=== PATIENT | male | born 1940 | race Two or more races ===

== ENCOUNTER 2021-08-23 05:52 | Inpatient (IN) | payer OTHER ==
[~2021-08-23] VITALS: Ht 177.8 cm; Wt 77.1 kg
[2021-08-23] MEDS ORDERED: COZAAR50 MG (06:05)
[2021-08-23] MEDS ORDERED: CARDURA XL8 MG (06:06)
[2021-08-23] MEDS ORDERED: METFORMIN HCL1000 M2 (06:06)
--- NOTE | 2021-08-23 06:07 | NUR ---
SE RECIBE PACIENTE ALERTA Y ORIENTADO X3 CON REFERIDO MEDICO DEL DR MEERA SEGAL POR MASA EN EL COLON. SE MONITOREAN LOS SV Y SE UBICA EN OBSERVACION.
[2021-08-31] MEDS ORDERED: ULTRACET PO (14:38)
[2021-08-31] MEDS ORDERED: INTESTINEX680 M1 PO (14:38)
[2021-08-31] MEDS ORDERED: PROTONIX40 MG PO (14:40)
== END 2021-08-31 17:44 | disposition home or self-care (01) | DRG 330 ==
LOC: ER 05:52 → SURH 17:16 → SURG 17:16 → SURH 08-27 21:35
PROVIDERS: ADMIT Surgery; ATTEND Surgery
PROC: 0DTF0ZZ Resection of Right Large Intestine, Open Approach (ICD-10-PCS; principal; 2021-08-23)
PROC: 07BB0ZZ Excision of Mesenteric Lymphatic, Open Approach (ICD-10-PCS; 2021-08-23)
PROC: 07BC0ZZ Excision of Pelvis Lymphatic, Open Approach (ICD-10-PCS; 2021-08-23)
DX: K56.690 Other partial intestinal obstruction (principal); C18.0 Malignant neoplasm of cecum; C77.5 Secondary and unspecified malignant neoplasm of intrapelvic lymph nodes; Z53.31 Laparoscopic surgical procedure converted to open procedure; I10 Essential (primary) hypertension

== ENCOUNTER 2021-09-21 04:52 | Day surgery (SDC) | payer OTHER ==
[~2021-09-21] VITALS: Ht 177.8 cm; Wt 77.1 kg
[~2021-09-21 04:52] MED LIST: CARDURA XL8 MG; COZAAR50 MG; INTESTINEX680 M1 PO; METFORMIN HCL1000 M2; PROTONIX40 MG PO; SALATAN; ULTRACET PO
[2021-09-21] MEDS ORDERED: ULTRACET PO (08:21)
== END 2021-09-21 11:20 | disposition home or self-care (01) ==
LOC: CIR.AMB 04:52
PROVIDERS: ATTEND Surgery
DX: C18.0 Malignant neoplasm of cecum (principal); K56.49 Other impaction of intestine; R14.0 Abdominal distension (gaseous); Z20.822 Contact with and (suspected) exposure to COVID-19; I10 Essential (primary) hypertension; E11.9 Type 2 diabetes mellitus without complications; Z79.84 Long term (current) use of oral hypoglycemic drugs